=== PATIENT | female | born 1960 | race Caucasian/White ===

== ENCOUNTER → 2016-10-11 | Outpatient (CLI) | payer OTHER ==
[~2016-10-11] MED LIST: BIOT10004 PO; CALCCHW25 PO; CLON1 PO; ERYT250T13 PO; ESTR30V PV; FLUO10CA5 PO; LINA145C PO; MAXA10TA2 PO; TAB-TAB PO
[2016-10-11 18:04] LABS: BICARBONATE 30.1 MEQ/L (21.0-32.0); POTASSIUM 3.9 MEQ/L (3.5-5.1)
[2016-10-11 18:14] LABS: HDL CHOLESTEROL 74.1 MG/DL (40.0-60.0)
== END ==
LOC: PLAB 13:42
PROVIDERS: ATTEND Family Medicine
DX: E78.5 Hyperlipidemia, unspecified (principal); F34.1 Dysthymic disorder; F32.9 Major depressive disorder, single episode, unspecified
CPT/HCPCS: 36415; 80048; 80061; 84443

== ENCOUNTER → 2017-02-27 | Outpatient (CLI) | payer OTHER ==
[~2017-02-27] MED LIST changes: -FLUO10CA5 PO; -MAXA10TA2 PO; +RIZA10TA2 PO
[2017-02-27 18:27] LABS: HDL CHOLESTEROL 87.8 MG/DL (40.0-60.0)
== END ==
LOC: PLAB 14:58
PROVIDERS: ATTEND Family Medicine
DX: E78.00 Pure hypercholesterolemia, unspecified (principal)
CPT/HCPCS: 36415; 80061